=== PATIENT | male | born 1980 | race Caucasian/White ===

== ENCOUNTER 2018-08-05 07:39 | Emergency (ER) | payer SELFPAY ==
--- NOTE | 2018-08-05 07:51 | EDM.PDOC ---
ED HPI GENERAL MEDICAL PROBLEM - General Chief Complaint: Eye Problems Stated Complaint: RIGHT EYE COMPLAINT Time Seen by Provider: 08/05/18 07:49 - History of Present Illness INITIAL COMMENTS - FREE TEXT/NARRATIVE: 38-year-old male presents to the emergency room with an irritation to his right eye. This started last night the patient with the stove in his garage and then he went to sit down. After sitting down he noticed an irritation in his right eye figuring something fell off from his hat. The patient cannot recall anything specific getting into his eye but he has a discomfort at the superior aspect of the globe behind the eyelid at the 10 to 11 o'clock position. Patient is up-to- date on his tetanus. Denies significant past medical history other than what sounds like a corneal laceration to the left eye many years ago. Right Eye Pain Score (Numeric/FACES): 7 - Related Data Allergies Allergy/AdvReac Type Severity Reaction Status Date / Time No Known Allergies Allergy Verified 08/05/18 07:50 Home Meds: Home Meds ALPRAZolam [Xanax] 0.5 mg PO ASDIRECTED PRN 08/05/18 [History] Cyclobenzaprine [Flexeril] 10 mg PO ASDIRECTED PRN 08/05/18 [History] Hydrocodone/Acetaminophen [Hydrocodon-Acetaminophen 5-325] 1 tab PO Q6H PRN [History] ED ROS GENERAL - Review of Systems Review Of Systems: See Below Constitutional: Reports: No Symptoms HEENT: Reports: Eye Pain ED EXAM GENERAL W FULL EYE - Physical Exam Exam: See Below Exam Limited By: No Limitations General Appearance: Alert, No Apparent Distress Eye Exam: Right Eye: Conjunctival Injection (Mild), Foreign Body (None seen lids everted), Bilateral Eye: Abnormal EOM, Abnormal Pupil, Periorbital Changes Visual Acuity (R) 20/: 20 Visual Acuity (L) 20/: 20 Eyelids: Bilateral: Normal Appearance Cornea Exam: Right: Examined with Flourescein (No abrasions visualized using fluorescein and slit lamp) Extraocular Movements: Bilateral: Intact Pupils: Normal Accommodation Anterior Chamber: Right: Normal Appearance Respiratory/Chest: No Respiratory Distress, Lungs Clear, Normal Breath Sounds Cardiovascular: Regular Rate, Rhythm, No Murmur Course - Vital Signs Last Recorded V/S: Last Vital Signs Temp 36.8 C 08/05/18 07:53 Pulse 82 08/05/18 07:53 Resp 16 08/05/18 07:53 BP 128/83 08/05/18 07:53 Pulse Ox 99 08/05/18 07:53 - Orders/Labs/Meds Meds: Medications Discontinued Medications Generic Name Dose Route Start Last Admin Trade Name Cecilia PRMukesh Reason Stop Dose Admin Fluorescein Sodium 0.6 mg 08/05/18 07:59 08/05/18 08:06 Ful-Eva EYERT 08/05/18 08:00 0.6 mg ONETIME STA Administration Proparacaine HCl 1 ml 08/05/18 07:58 08/05/18 08:08 Proparacaine 0.5% Ophth Soln EYERT 08/05/18 07:59 Not Given ONETIME STA Proparacaine HCl 1 ml 08/05/18 08:00 08/05/18 08:08 Proparacaine 0.5% Ophth Soln EYERT 08/05/18 08:01 1 ml ONETIME STA Administration - Re-Assessments/Exams Free Text/Narrative Re-Assessment/Exam: 08/05/18 08:27 Despite repeated exam fluoresceined and slit-lamp exam looking under both eyelids I cannot visualize any evidence of trauma no corneal abrasions. And no foreign bodies seen. I have arranged for the patient to see Dr. Buchanan at [address] [place] [address] at 1:45 this afternoon. The patient agrees to follow-up with Dr. Buchanan. 08/05/18 08:39 Patient be started on erythromycin ointment 1/2 inch behind the right lower eyelid every couple hours until he sees Dr. Buchanan. The patient does not think he needs anything other than [id number] medication for discomfort. Departure - Departure Time of Disposition: 08:29 Disposition: Home, Self-Care 01 Clinical Impression: Discomfort of right eye - Discharge Information Referrals: PCP,None [Primary Care Provider] - Forms: ED Department Discharge Additional Instructions: Return to the emergency room with any questions or problems. Follow-up with Dr. Buchanan at [facility] at 1:45 this afternoon, his address is [address] [place] [address]. [phone] Use erythromycin ointment about a half-inch behind your lower eyelid every couple hours.
[2018-08-05] MEDS ORDERED: Proparacaine 0.5% Ophth Soln 15 ML Bottle EYERT STA ×2 (07:58→08:00)
[2018-08-05] MEDS ORDERED: Fluorescein 0.6 MG Ophth Strip EYERT STA (07:59)
[2018-08-05] MEDS ORDERED: Erythromycin Base 0.5% Ophth Oint 1 GM Tube EYERT STA (08:36)
== END 2018-08-05 08:50 | disposition home or self-care (01) ==
LOC: JD.ED 07:39
DX: H57.89 Other specified disorders of eye and adnexa (principal)
CPT/HCPCS: 99283; A9270